=== PATIENT | female | born 2000 ===

== ENCOUNTER 2021-01-23 22:25 | Emergency (ER) | payer OTHER ==
[~2021-01-23] VITALS: Ht 162.6 cm; Wt 72.7 kg
[2021-01-24] MEDS ORDERED: AMOXICILLIN 50500 MG PO (00:49)
[2021-01-24] MEDS ORDERED: ZOFRAN ODT4 MG PO (00:50)
[2021-01-24 01:05] VITALS: BP 124/80; PULSE 97; TEMP 99
== END 2021-01-24 01:05 | disposition home or self-care (01) ==
LOC: COL.ER 22:25
DX: J03.90 Acute tonsillitis, unspecified (principal)
CPT/HCPCS: J8540